=== PATIENT | female | born 1965 | race Hispanic/Latino ===

== ENCOUNTER 2022-04-04 12:35 | Emergency (ER) | payer SELFPAY ==
--- NOTE | ~2022-04-04 | CT_ITS ---
EXAMINATION: CT abdomen pelvis w con INDICATION: Lower abdominal pain, hematuria TECHNIQUE: Computed tomographic images of the abdomen and pelvis were obtained after the administrati on of 100 cc of Omnipaque 350 intravenous contrast. The dose-length product (DLP) was 631.49 mGy-cm. Automated exposure control and iterative reconstruction technique were employed. COMPARISON: None available FINDINGS: Minimal dependent atelectasis is present in the lung bases. The heart size is normal. The l iver, spleen, pancreas, gallbladder, and adrenal glands are normal. The kidneys are unremarkable. No pathologically enlarged abdominal or pelvic lymph nodes are identified. There is no free intraperiton eal gas or evidence of bowel obstruction. There is diffuse wall thickening of the urinary bladder. Th ere are ventral hernias of the infraumbilical abdominal wall containing fat and nonobstructed small b owel. There is mild lumbar spondylosis. IMPRESSION: 1. Wall thickening of the urinary bladder, likely cystitis. 2. Infraumbilical midline ventral hernias containing fat and nonobstructed small bowel. Reviewed, dictated and finalized at location A. IMPRESSION: 1. Wall thickening of the urinary bladder, likely cystitis. 2. Infraumbilical midline ventral hernias containing fat and nonobstructed smal l bowel.
[2022-04-04 12:45] VITALS: BP 143/57; PULSE 73; RESP 20; TEMP 36.2; O2SAT 99
--- NOTE | 2022-04-04 13:47 | ED.FEMALEGU ---
HPI - Female Genitourinary General Chief complaint: Urogenital-Female Stated complaint: hematuria Time Seen by Provider: 04/04/22 13:02 Source: patient Mode of arrival: ambulatory Limitations: language barrier (her son is interpreting which she prefers) History of Present Illness HPI Narrative: This is a 56 year old female that presents to the ER for hematuria noted since yesterday. Associated with dysuria and lower abdominal pain. Denies fever or vomiting. Related Data Allergies Allergy/AdvReac Type Severity Reaction Status Date / Time No Known Allergies Allergy Verified 04/04/22 14:08 Review of Systems Review of Systems: CONSTITUTIONAL: Denies fever GASTROINTESTINAL: Reports abdominal pain. Denies nausea, vomiting GENITOURINARY: Reports dysuria and hematuria. All systems reviewed & are unremarkable except as noted in HPI and below PMFSH Past Medical History Medical History (Updated 04/04/22 @ 15:45 by Marry Nolen PA-C) History of diabetes mellitus Surgical History Surgical History (Updated 04/04/22 @ 13:57 by Marry Nolen PA-C) History of hysterectomy Social History Social History (Updated 04/04/22 @ 13:47 by Marry Nolen PA-C) Smoking status: Never smoker Exam Narrative: GENERAL: Well-appearing, well-nourished, and in no acute distress. HEAD: Normocephalic, atraumatic. EYES: EOMI. CHEST: Clear to auscultation. No respiratory distress. No wheezes rales or rhonchi HEART: Regular rate and rhythm. No murmur heard. Normal peripheral pulses. ABDOMEN: Soft, nondistended, normal active bowel sounds. Mild tenderness to palpation throughout the lower abdomen, without guarding. No CVA tenderness EXTREMITIES: Normal range of motion. No edema. SKIN: Warm, dry, no rash. NEURO: No focal deficits. Alert and oriented x3. PSYCH: Normal mood and affect Course Vital Signs Vital signs: Vital Signs Temperature 97.2 F L 04/04/22 12:45 Pulse Rate 73 04/04/22 12:45 Respiratory Rate 20 04/04/22 12:45 Blood Pressure 143/57 H 04/04/22 12:45 Pulse Oximetry 99 04/04/22 12:45 Temperature 97.2 F L 04/04/22 12:45 Pulse Rate 73 04/04/22 12:45 Respiratory Rate 20 04/04/22 12:45 Blood Pressure 143/57 H 04/04/22 12:45 Pulse Oximetry 99 04/04/22 12:45 MDM - Female Genitourinary MDM Narrative Medical decision making narrative: Patient Zentz to the emergency department for dysuria and hematuria. Ongoing over the last couple of days. Patient is afebrile and nontoxic-appearing. CBC is notable for leukocytosis to 17.3. Metabolic panel without concerning findings. UA with greater than 75 white blood cells and red blood cells. CT scan of the abdomen and pelvis shows wall thickening of the urinary bladder, likely cystitis. Infraumbilical midline ventral hernias containing fat and non obstructed small bowel. Patient and family updated on case findings. Given dose of antibiotics IV in the ED. Will be discharged on oral antibiotics. Instructed to have close follow-up with her primary doctor. She was given warnings to return to the ER Lab Data Attestation: I reviewed the patient's lab results. Result diagrams: 04/04/22 14:07 04/04/22 14:06 Labs: Lab Results 04/04/22 04/04/22 04/04/22 Range/Units 13:02 13:02 14:06 WBC (4.5-10.0) K/mm3 RBC (4.2-5.4) M/mm3 Hgb (12.0-15.0) g/dL Hct (37.0-47.0) % MCV (80-100) fl MCH (26-34) pg MCHC (32-36) g/dl RDW (11.5-14.5) % Plt Count (150-375) k/mm3 MPV (7.4-10.4) fl Immature Gran % (Auto) (0-0.5) % Neut % (Auto) (45.5-73.1) % Lymph % (Auto) (18.3-44.2) % Nash % (Auto) (2.6-8.5) % Eos % (Auto) (0-4.4) % Baso % (Auto) (0.2-1.2) % Lymph # (Auto) (0.9-3.2) K/mm3 Nash # (Auto) (0.1-0.6) K/mm3 Eos # (Auto) (0-0.3) K/mm3 Baso # (Auto) (0.0-0.1) K/mm3 Abs Immat Gran (auto) (0.00-0.031) K/mm3 Absolute Neut
[2022-04-04 14:04] LABS: Add Urine Microscopic? YES; Appearance Urine Turbid (Clear); Color Urine Red (Yellow); RBC Urine >75 /hpf (0-2); Squamous Epithelial Cell Urine Moderate /hpf (Few); WBC Urine >75 /hpf
[2022-04-04 14:20] LABS: Basophils Absolute Auto 0.1 K/mm3 (0.0-0.1); Basophils Percent Auto 0.3 % (0.2-1.2); Eosinophils Absolute Auto 0.1 K/mm3 (0-0.3); Eosinophils Percent Auto 0.7 % (0-4.4); Hemoglobin 14.2 g/dL (12.0-15.0); Immature Granulocyte Absolute 0.07 K/mm3 (0.00-0.031); Immature Granulocyte Percent A 0.4 % (0-0.5); Lymphocytes Absolute Auto 3.37 K/mm3 (0.9-3.2); Lymphocytes Percent Auto 19.5 % (18.3-44.2); Mean Corpuscular HGB Conc 33.8 g/dl (32-36); Mean Corpuscular Hemoglobin 29.3 pg (26-34); Mean Corpuscular Volume 86.8 fl (80-100); Mean Platelet Volume 9.1 fl (7.4-10.4); Monocytes Absolute Auto 0.9 K/mm3 (0.1-0.6); Monocytes Percent Auto 5.4 % (2.6-8.5); Neutrophils Absolute Auto 12.8 K/mm3 (1.3-6.7); Neutrophils Percent Auto 73.7 % (45.5-73.1); Platelet Count Result 365 k/mm3 (150-375); Red Blood Count 4.84 M/mm3 (4.2-5.4); Red Cell Distribution Width 13.2 % (11.5-14.5); White Blood Count 17.3 K/mm3 (4.5-10.0)
[2022-04-04 14:26] LABS: Pregnancy On Board Control Positive; Urine Pregnancy Test Negative
[2022-04-04 14:31] LABS: Alanine Aminotransferase 24 U/L (6-35); Albumin Level 4.4 g/dL (3.5-5.1); Alkaline Phosphatase 55 U/L (38-126); Anion Gap 15 mmol/L (8-16); Aspartate Amino Transferase 33 U/L (14-36); Bilirubin,Total 1.1 mg/dL (0.2-1.3); Blood Urea Nitrogen 13 mg/dL (7-17); Calcium 9.4 mg/dL (8.4-10.2); Carbon Dioxide 24 mmol/L (22-30); Chloride 101 mmol/L (98-107); Estimated Glomerular Filt Rate > 60; Glucose 189 mg/dL (65-110); Potassium 4.3 mmol/L (3.4-5.0); Sodium 140 mmol/L (137-145)
[2022-04-04 16:16] VITALS: BP 132/75; PULSE 76; RESP 18; O2SAT 99
== END 2022-04-04 16:18 | disposition home or self-care (01) ==
PROVIDERS: Physician Assistant; Emergency Provider Emergency Medicine; PCP Registered Nurse
DX: N30.90 Cystitis, unspecified without hematuria (principal)
CPT/HCPCS: 36415; 74177; 80053; 81001; 81025; 85025; 87077; 87086; 87186; 96365; 99284; J0696; Q9967